=== PATIENT | female | born 1965 | race Two or more races ===

== ENCOUNTER 2017-09-29 01:01 | Emergency (ER) | payer BC, OTHER ==
[~2017-09-29] VITALS: Ht 165.1 cm; Wt 90.7 kg
[2017-09-29 01:01] VITALS: BP 127/67
[2017-09-29] MEDS ORDERED: TRAMADOL HCL 50 MG TABLET ONE (01:54)
[2017-09-29] MEDS ORDERED: TRAMADOL HCL 50 MG TABLET PO ONE (02:00)
== END 2017-09-29 04:02 | disposition home or self-care (01) ==
LOC: ER 01:04
DX: M79.672 Pain in left foot (principal); E11.9 Type 2 diabetes mellitus without complications; I10 Essential (primary) hypertension; Z88.0 Allergy status to penicillin
CPT/HCPCS: 73630; 73700; 99284; A4606; Z7610

== ENCOUNTER 2017-12-26 13:00 | Outpatient (CLI) | payer BC, OTHER | END 2017-12-26 23:59 | disposition home or self-care (01) | LOC: WOU 13:00 | PROVIDERS: ATTEND Podiatrist Foot & Ankle Surgery | DX: M72.2 Plantar fascial fibromatosis (principal); M79.672 Pain in left foot; M89.9 Disorder of bone, unspecified; I10 Essential (primary) hypertension; E11.9 Type 2 diabetes mellitus without complications | CPT/HCPCS: 99215; Z7610; G0463 ==

== ENCOUNTER 2018-10-03 13:39 | Outpatient (CLI) | payer BC ==
[~2018-10-03 13:39] MED LIST: FENO135C PO; JARDIANCE 25 MG TABLET PO; LOSA25TA27 PO; SITA1TAB6 PO
[2018-10-03 14:48] LABS: BASOPHILS % (AUTO) 0.6 % (0.0-2.0); HEMATOCRIT 40 % (33-45); HEMOGLOBIN 13.6 g/dL (11.5-14.8); LYMPHOCYTES # (AUTO) 2.3 /CMM (0.8-4.8); LYMPHOCYTES % (AUTO) 39.7 % (20.0-44.0); MEAN CORPUSCULAR HGB CONC 34 g/dl (31.0-36.0); MEAN CORPUSCULAR VOLUME 87 fL (82-100); MONOCYTES # (AUTO) 0.4 /CMM (0.1-1.30); MONOCYTES % (AUTO) 6.1 % (2.0-12.0); NEUTROPHILS % (AUTO) 51.6 % (43.0-81.0); PLATELET COUNT (AUTO) 268 /CMM (150-450); RED BLOOD CELL COUNT(AUTO) 4.59 MIL/uL (4.0-5.2); WHITE BLOOD COUNT (AUTO) 5.8 K/uL (4.3-11.0)
[2018-10-03 15:08] LABS: APPEARANCE,URINE SL CLOUDY (CLEAR); BILIRUBIN,TOTAL 0.3 mg/dL (0.2-1.0); BILIRUBIN,URINE NEGATIVE (NEGATIVE); BLOOD, URINE NEGATIVE Ery/uL (NEGATIVE); CALCIUM, SERUM 9.3 mg/dL (8.5-10.1); COLOR,URINE YELLOW (YELLOW); CREATININE 0.5 mg/dL (0.6-1.3); KETONES,URINE NEGATIVE (NEGATIVE); LEUKOCYTE ESTERASE ,URINE NEGATIVE (NEGATIVE); NITRITE, URINE NEGATIVE (NEGATIVE); PH,URINE 5.5 (5.0-8.0); POTASSIUM 3.8 mmol/L (3.5-5.1); PROTEIN,URINE NEGATIVE (NEGATIVE); TOTAL PROTEIN, SERUM 7.8 g/dL (6.4-8.2); UGLUCOSE 3+ mg/dL (NEGATIVE); UROBILINOGEN,URINE 0.2 EU/dL (0.2)
[2018-10-03 15:23] LABS: THYROID STIMULATING HORMONE 2.28 uIU/mL (0.358-3.74)
[2018-10-03 15:36] LABS: BACTERIA,URINE None seen /HPF (None Seen); RBC,URINE 0-2 /HPF (0-2); SQUAMOUS EPITHELIAL CELL,UR Moderate /HPF (None Seen); WBC,URINE 0-2 /HPF (0-3)
[2018-10-04 08:10] LABS: FOLLICLE STIMULATION HORMONE 33.8 mIU/mL (.); LUTEINIZING HORMONE 19.9 mIU/mL (.)
[2018-10-04 15:17] LABS: FOLIC ACID 18.5 ng/mL (>3.0)
== END 2018-10-03 23:59 | disposition home or self-care (01) ==
LOC: LAB 13:39
PROVIDERS: ATTEND Legal Medicine
DX: Z00.00 Encounter for general adult medical examination without abnormal findings (principal); I10 Essential (primary) hypertension; E11.9 Type 2 diabetes mellitus without complications; E78.00 Pure hypercholesterolemia, unspecified; E03.9 Hypothyroidism, unspecified
CPT/HCPCS: 36415; 80053-TC; 80061-TC; 81000-TC; 82306; 82728-TC; 83001; 83002; 83540-TC; 84443-TC; 85025-TC; 85652-TC

== ENCOUNTER 2018-10-09 09:02 | Outpatient (CLI) | payer BC | END 2018-10-09 23:59 | disposition home or self-care (01) | LOC: US 09:02 | PROVIDERS: ATTEND Obstetrics & Gynecology | DX: N88.8 Other specified noninflammatory disorders of cervix uteri (principal); R20.0 Anesthesia of skin; Z78.0 Asymptomatic menopausal state | CPT/HCPCS: 70450-TC; 76856-TC ==

== ENCOUNTER 2019-04-25 12:59 | Emergency (ER) | payer BC, OTHER ==
[~2019-04-25] VITALS: Ht 157.5 cm; Wt 85.7 kg
--- NOTE | 2019-04-25 13:26 | NUR ---
PA FOSTER AT BEDSIDE
--- NOTE | 2019-04-25 13:32 | NUR ---
x-ray done,waiting on result
--- NOTE | 2019-04-25 14:19 | NUR ---
Patient discharged to home in stable condition. Written and verbal after care instructions given. Patient verbalizes understanding of instruction.
[2019-04-25 14:55] VITALS: BP 154/63
== END 2019-04-25 14:24 | disposition home or self-care (01) ==
LOC: ER 12:59
DX: S66.211A Strain of extensor muscle, fascia and tendon of right thumb at wrist and hand level, initial encounter (principal); S66.811A Strain of other specified muscles, fascia and tendons at wrist and hand level, right hand, initial encounter; I10 Essential (primary) hypertension; E11.9 Type 2 diabetes mellitus without complications; Z88.0 Allergy status to penicillin; Z79.899 Other long term (current) drug therapy; X50.0XXA Overexertion from strenuous movement or load, initial encounter; Y93.89 Activity, other specified; Y92.89 Other specified places as the place of occurrence of the external cause; Y99.0 Civilian activity done for income or pay
CPT/HCPCS: 73130-TC

== ENCOUNTER 2019-07-12 11:59 | Outpatient (CLI) | payer OTHER | END 2019-07-12 23:59 | disposition home or self-care (01) | LOC: MRI 11:59 | DX: S43.402A Unspecified sprain of left shoulder joint, initial encounter (principal); S63.591A Other specified sprain of right wrist, initial encounter; S63.592A Other specified sprain of left wrist, initial encounter; M19.012 Primary osteoarthritis, left shoulder; M94.232 Chondromalacia, left wrist; M94.231 Chondromalacia, right wrist; M18.0 Bilateral primary osteoarthritis of first carpometacarpal joints; M65.311 Trigger thumb, right thumb; M77.8 Other enthesopathies, not elsewhere classified; X58.XXXA Exposure to other specified factors, initial encounter; Y93.89 Activity, other specified; Y92.89 Other specified places as the place of occurrence of the external cause; Y99.0 Civilian activity done for income or pay | CPT/HCPCS: 73221; 73221-TC ==